=== PATIENT | female | born 1985 | race Caucasian/White ===

== ENCOUNTER 2018-07-30 14:00 | Outpatient (RCR) | payer OTHER, SELFPAY | END 2018-07-30 23:59 | LOC: NS 14:00 | PROVIDERS: Family Provider Family Medicine; PCP Family Medicine; Visit Provider Nurse Practitioner Family | DX: E66.9 Obesity, unspecified (principal); Z68.41 Body mass index [BMI] 40.0-44.9, adult; Z71.3 Dietary counseling and surveillance | CPT/HCPCS: 97803 ==

== ENCOUNTER 2018-08-13 08:07 | Outpatient (RCR) | payer OTHER, SELFPAY | END 2018-08-13 23:59 | LOC: NS 08:07 | PROVIDERS: Family Provider Family Medicine; PCP Family Medicine; Visit Provider Nurse Practitioner Family | DX: E66.9 Obesity, unspecified (principal); Z68.41 Body mass index [BMI] 40.0-44.9, adult; Z71.3 Dietary counseling and surveillance | CPT/HCPCS: 97803 ==

== ENCOUNTER 2022-03-27 14:30 | Outpatient (RCR) | payer OTHER, SELFPAY ==
--- NOTE | 2022-01-31 09:01 | HP.PTEVAL_ITS ---
Patient's Visit Information MICHELE ALLAN is a 36 year old F referred to Physical Therapy by Serenity Tony with a diagnosis of L knee pain. Date of Evaluation: 01/31/22 Physical Therapist: Gerber Michel, PT, ATC - Visit Plan Frequency: 2-3x /Week Duration: 4-6 Weeks Plan: L knee stretching and strengthening, REIL, core stab ex's, bike, and HEP - Subjective Pt reports she has had L knee pain for 9 months. Pt reports she was on a creeper at that time and felt a popping sensation upon standing. Pt reports she went to the orthopedic and received and MRI. Pt reports all that was found was a bakers cyst, so she was given an anti-inflammatory and felt great after that. However, pt reports she went on vacation 3 weeks ago and left her medications at home, and the pain returned. Pt reports she was given more anti-inflammatories which h ave taken away most of the pain again, and she was ordered another MRI which has been refused until pt has PT. Pt reports the pain is located in the popliteal region of her L knee. Pt also notes pain on the lower aspect of her lateral calf, and along the distal hamstring tendon. Pt reports tingling on the lasteral aspect of L LE that will radiate into her foot. Occasional sleep difficulty secondary to pain without pain meds. Pt reports increased pain with car rides, stair negotiation, and kneeling onto L LE. 1/10 pain at rest, 10/10 pain at worst (pt was on the floor and attempted to stand up at that time.) - Pain L knee pain Pain Intensity (Out of 10): 1 Pain Intensity Range: 9 - Objective Neuro: B LE sensation is WNL to light touch. B patellar reflex= 2/3. Palpation: Pt is very sore along the posterior aspect of L knee joint, specifically the lateral aspect. No obvious deformity noted at this time. Girth: R knee 42 cm, L knee 44 cm. ROM: R knee 0-135, L knee 0-7-110. MMT: R knee flex= 26, ext= 25 #F; L knee flex= 19, ext= 16 #F. Special test: No pos tests this date. Re peated movements of the L/S; RFIS Increased tingling in L foot; MATTHEW centralized sx's - Balance/Special Test Scores Lower Extremity Functional Score: 16 - Goals Goal 1:: Decrease L knee pain x 50% to aid with sleep Goal Time Frame: 4-6 Weeks Goal 2:: Increase L knee ROM x 15 degrees to aid with stair negotiation Goal Time Frame: 4-6 Weeks Goal 3:: Increase L knee strength x 5#F to aid with work requirements Goal Time Frame: 4-6 Weeks Goal 4:: I with HEP Goal Time Frame: 4-6 Weeks - Rehabilitation Potential Physical Therapy Diagnosis: Pt has L knee pain, weakness, and limited ROM secondary to internal knee derrangement Rehabilitation Potential: Good - Anticipated Interventions Patient/Client Instruction: Educate patient on: Condition, Plan of Care For the Purpose of:: To improve self management Therapeutic Exercise to Include: Strength training, Endurance training, Balance training, Gait and locomotor training, Dynamic Lumbar Stabilization For the Purpose of:: To decrease pain, To increase ROM, To improve muscle performance and motor function Cryotherapy (ice pack, ice massage): Yes For the Purpose of:: To decrease pain Thank you for the opportunity to evaluate your patient. For Medicare and Medicare HMO plans, please review the plan of care and approve it. It will need to be FAXED BACK to us at [phone] for Medicare purposes. For Medicare only, by signing this I certify the plan of care. Please let me know if there are questions or concerns regarding this plan of care. Physician Signature: Date:
--- NOTE | 2022-03-27 15:04 | HP.PTDCSUM ---
It has been my pleasure to treat MICHELE ALLAN referred by Serenity Tony, with the diagnosis of L knee pain for a total of 7 visit(s). Discharge Date: Please see the following information for a summary of their discharge status. Subjective: No pain this date L knee pain Pain Intensity (Out of 10): 0 % Improvement: 90 Objective/Function: L knee pain 0/10. L knee MMT: flex= 30, ext= 37#F. L knee ROM: 0-120 degrees. Pt is I with HEP. Rx goals achieved. Goal 1:: Decrease L knee pain x 50% to aid with sleep Goal Progress: Goal Met Goal 2:: Increase L knee ROM x 15 degrees to aid with stair negotiation Goal Progress: Goal Met Goal 3:: Increase L knee strength x 5#F to aid with work requirements Goal Progress: Goal Met Goal 4:: I with HEP Goal Progress: Goal Met Plan: Discharge to HEP If there are questions or concerns regarding this patient's physical therapy, please feel free to call me at [phone]. Thank you for the referral of this patient. Sincerely, Gerber Michel, PT, ATC Balance/Gait/Functional tests - Balance/Special Test Scores Lower Extremity Functional Score: 67
--- NOTE | 2022-03-27 15:07 | HP.PTREVAL ---
Serenity Tony, It has been my pleasure to treat MICHELE ALLAN over the last 7 visits for L knee pain. Please see the progress note below for an update on the physical therapy plan of care! Subjective: No pain this date Objective/Function: L knee pain 0/10. L knee MMT: flex= 30, ext= 37#F. L knee ROM: 0-120 degrees. Pt is I with HEP. Rx goals achieved. Plan Plan: Follow up or discharge in one month Balance/Gait/Functional tests - Balance/Special Test Scores Lower Extremity Functional Score: 67 Goals Goal 1:: Decrease L knee pain x 50% to aid with sleep Goal Time Frame: 4-6 Weeks Goal Progress: Goal Met Goal 2:: Increase L knee ROM x 15 degrees to aid with stair negotiation Goal Time Frame: 4-6 Weeks Goal Progress: Goal Met Goal 3:: Increase L knee strength x 5#F to aid with work requirements Goal Time Frame: 4-6 Weeks Goal Progress: Goal Met Goal 4:: I with HEP Goal Time Frame: 4-6 Weeks Goal Progress: Goal Met Anticipated Interventions Patient/Client Instruction: Educate patient on: Condition, Plan of Care For the Purpose of:: To improve self management Therapeutic Exercise to Include: Strength training, Endurance training, Balance training, Gait and locomotor training, Dynamic Lumbar Stabilization For the Purpose of:: To decrease pain, To increase ROM, To improve muscle performance and motor function Cryotherapy (ice pack, ice massage): Yes For the Purpose of:: To decrease pain Please do not hesitate to contact me at [phone] by phone or if you have questions or concerns regarding this new plan of care! Sincerely, Gerber Michel, PT, ATC
== END 2022-03-27 19:00 | disposition home or self-care (01) ==
LOC: PT 14:30
DX: M25.562 Pain in left knee (principal)
CPT/HCPCS: 97110; 97140; 97161; 97164

== ENCOUNTER → 2023-02-28 | Outpatient (CLI) | payer OTHER, SELFPAY ==
[2023-02-28 18:20] LABS: Basophil# 0.07 X10^3/uL; Basophil% 1.2 % (0-1); Eosinophil# 0.14 X10^3/uL; Eosinophils% 2.3 % (0-5); Hematocrit 38.3 % (37-47); Hemoglobin 13.1 g/dL (12.0-15.0); Lymphocyte % 38.5 % (19-41); Mean Corp Hgb Conc 34.2 g/dL (32-36); Mean Corpuscular Hgb 31.6 pg (27.0-32.0); Mean Corpuscular Volume 92.5 fL (81-99); Mean Platelet Vol. 10.7 fl (6.2-12.0); Monocyte# 0.51 X10^3/uL; Monocyte% 8.5 % (0-10); NRBC Flagged by Analyzer 0 % (0-5); Neutrophil # 2.95 X10^3/uL (2.7-7.7); Neutrophil % 49.3 % (47-70); Platelet Count 255 K/mm3 (150-450); RBC Distribution Width CV 11.8 % (11.6-14.6); RBC Distribution Width SD 40.1 fl (35.1-43.9); Red Blood Count 4.14 M/mm3 (4.2-5.4)
[2023-02-28 19:25] LABS: hCG Titer Quant., Serum < 1 mIU/mL (1-3)
[2023-02-28 19:31] LABS: Estradiol 30.8 pg/mL; Follicle Stimulating Hormone 11.1 mIU/mL; Luteinizing Hormone 6.2 mIU/mL; Prolactin 6.3 ng/mL; T4 Free Direct 1.05 ng/dL (0.76-1.46); Thyroid Stim Hormone (TSH) 1.83 uIU/mL (0.358-3.74)
== END | disposition home or self-care (01) ==
LOC: WOBLAB 16:41
PROVIDERS: Visit Provider Nurse Practitioner Women's Health
DX: N94.5 Secondary dysmenorrhea (principal)
CPT/HCPCS: 36415; 82670; 83001; 83002; 84146; 84439; 84443; 84702; 85025

== ENCOUNTER 2024-01-29 20:33 | Emergency (ER) | payer OTHER, SELFPAY ==
[2024-01-29 20:34] VITALS: BP 115/71; PULSE 107; RESP 15; TEMP 37.2; O2SAT 96; BMI 30.6
[2024-01-29 21:01] LABS: Bacteria 0 SEEN /hpf (None Seen); Mucous, Urine 0 SEEN /hpf (<or=2+); Red Blood Cells-Urine 0 SEEN /hpf (0-5); White Blood Cells 0 SEEN /hpf (0-5)
[2024-01-29 21:05] LABS: Color, Urine Yellow (Yellow); Glucose, Dipstick Normal (Normal); Ketone-Dipstick Negative (Negative); Leukocyte Esterase-Dipstick Negative /ul (Negative); Nitrite-Dipstick Negative (Negative); Occult Blood-Urine Negative /ul (Negative); Protein-Dipstick Negative (Negative); Urine Bilirubin Dipstick Negative (Negative); Urine Clarity Clear (Clear); Urine Urobilinogen Normal (Normal)
[2024-01-29 21:30] LABS: Absolute Lymphocyte Count 1.19 X10^3/uL (0.83-4.51); Absolute Neutrophil Count 7.4 X10^3/uL (2.0-7.7); Basophil# 0.04 X10^3/uL; Basophil% 0.4 % (0-1); Eosinophil# 0.02 X10^3/uL; Eosinophils% 0.2 % (0-5); Hematocrit 32.9 % (37-47); Hemoglobin 11.1 g/dL (12.0-15.0); Lymphocyte # 1.19 X10^3/ul (0.83-4.51); Lymphocyte % 12.1 % (19-41); Mean Corp Hgb Conc 33.7 g/dL (32-36); Mean Corpuscular Hgb 30.4 pg (27.0-32.0); Mean Corpuscular Volume 90.1 fL (81-99); Mean Platelet Vol. 10.7 fl (6.2-12.0); Monocyte# 1.18 X10^3/uL; NRBC Flagged by Analyzer 0 % (0-5); Neutrophil # 7.36 X10^3/uL (2.7-7.7); Neutrophil % 74.9 % (47-70); Platelet Count 161 K/mm3 (150-450); RBC Distribution Width CV 11.6 % (11.6-14.6); RBC Distribution Width SD 38.1 fl (35.1-43.9); Red Blood Count 3.65 M/mm3 (4.2-5.4); White Blood Count 9.8 K/mm3 (4.4-11.0)
[2024-01-29 21:31] LABS: Squamous Epithelial Cells - UA 0-5 SEEN /hpf (5-10)
[2024-01-29 21:38] VITALS: BP 117/67; PULSE 104; RESP 16; TEMP 36.8; O2SAT 99
[2024-01-29 21:42] LABS: Internal QC Validated? YES +Cl - CLEAR BKGD; Pregnancy, Serum, hCG Quali. NEGATIVE Negative
[2024-01-29 21:51] LABS: AST(SGOT) 21 U/L (15-37); Alanine Aminotransfer ALT/SGPT 28 U/L (13-56); Albumin, Serum 3.2 g/dL (3.2-5.0); Alkaline Phosphatase 45 U/L (45-117); Anion Gap 4 (5-15); BUN 6 mg/dL (7-18); Calcium,Total 8.4 mg/dL (8.5-10.1); Chloride 109 mmol/L (98-107); Creatinine, Serum 0.67 mg/dL (0.55-1.02); EST Glomerular Filtration Rate 104 mL/min (>60); Est Glom Filt Rate - Afr Amer 126 mL/min (>60); Estimated Creatinine Clearance 111.81 ml/min; Globulin 3.2 g/dL (2.2-4.2); Glucose 118 mg/dL (74-106); Potassium 3.7 mmol/L (3.5-5.1); Protein, Total 6.4 g/dL (6.4-8.2); Sodium Level 137 mmol/L (136-145)
--- NOTE | 2024-01-29 21:57 | CT_ITS ---
STUDY: CT ABDOMEN AND PELVIS WITHOUT CONTRAST REASON FOR EXAM: Female, 38 years old. R flank pain RADIATION DOSAGE (If Supplied By Facility): CTDIvol = ( 7.10 ) mGy, DLP = ( 381.61 ) mGycm TECHNIQUE: Transaxial images were obtained from the dome of the diaphragm to the symphysis pubis without oral contrast, and without intravenous contrast. Sagittal and coronal images were reconstructed. Individualized dose optimization techniques were used for this CT. COMPARISON: Abdominal ultrasound December 24, 2014 FINDINGS: Calcified granuloma left lower lobe. The visualized portions of the heart are within normal limits. Normal liver. Normal gallbladder and extrahepatic biliary system. Normal spleen. Normal pancreas. Normal bilateral adrenal glands. Moderate right hydronephrosis and perinephric stranding. No radiodense ureterolithiasis punctate nonobstructing nephrolith on the left. Normal visualized stomach. Air-fluid levels in the small bowel. Normal colon. The appendix is visualized and appears normal. Normal abdominal aorta. Normal inferior vena cava. Normal retroperitoneum. Normal urinary bladder. Uterus normal. Normal abdominal wall. Normal osseous structures. CT/Abdomen/Pelvis without Cont IMPRESSION: Possible right pyelonephritis. Ileus. Electronically Signed: Josesito Cullen MD at 22:50 EDT ,
--- NOTE | 2024-01-29 21:58 | ED.VIS.GI ---
HPI HPI - GI History of Present Illness Chief Complaint: Abd Pain Informant: patient Narrative Narrative: Pain in her right flank that is mostly in the low back and radiates around to the right mid abdomen, started gradually but fairly quickly became worse earlier this afternoon, may be 6-8 hours prior to evaluation. Pain is not colicky. Associated with nausea and 1 bout of emesis. Has some urinary urgency and feels like trouble emptying bladder but no dysuria or hematuria or dark discolored urine. Constipated recently no diarrhea or bright red blood per rectum. No fevers or chills. Never had this pain before. History of no other abdominal surgeries. Did not occur after a meal. Does not hurt worse to move, having trouble finding a comfortable position since she keeps moving around. PFSH PFSH Medical History no medical history Home Medications albuterol sulfate 90 mcg/actuation aerosol inhaler (ProAir HFA) 2 puff inhalation Q4H PRN PRN Shortness Of Breath 10/08/13 [History Last Taken 10/08/13 2] ketorolac 10 mg tablet 10 mg PO Q6H FOR PAIN ##20 12/24/14 [Rx Last Taken Unknown] ondansetron 8 mg disintegrating tablet (Zofran ODT) 8 mg PO Q8H PRN PRN Nausea ##14 12/24/14 [Rx Last Taken Unknown] paroxetine HCl 20 mg tablet 20 mg PO DAILY 12/24/14 [History Last Taken Unknown] ondansetron 8 mg disintegrating tablet 8 mg PO Q8H PRN nausea and vomiting #12 tabs 01/30/24 [Rx Last Taken Unknown] oxycodone-acetaminophen 5 mg-325 mg tablet 1 tab PO Q6H PRN PRN Pain 3 days #12 TABLETS 01/30/24 [Rx Last Taken Unknown] Allergy/AdvReac Type Severity Reaction Status Date / Time No Known Allergies Allergy Verified 01/29/24 20:39 Surgical History no surgical history Social History Smoking Status: Never smoker ROS ROS ED Constitutional Constitutional ED: Denies chills or fever(s) Eyes Eyes: Denies change in vision or diplopia ENT ENT ED: Denies rhinorrhea or sore throat Cardiovascular Cardiovascular: Denies chest pain or palpitations Respiratory/Chest Respiratory/Chest: Denies cough or dyspnea Gastrointestinal Gastrointestinal: Reports abdominal pain, nausea and vomiting; Denies diarrhea Genitourinary Genitourinary ED: Reports as per HPI, flank pain and urinary urgency; Denies dysuria or hematuria Musculoskeletal Musculoskeletal: Reports back pain; Denies neck pain Integumentary Denies abscess or rash Neurologic Neurologic: Denies headache(s), paresthesias or weakness Psychiatric Psychiatric: Denies anxiety or suicidal thoughts EXAM Physical Exam Const Vital Signs: 01/29/24 20:34 01/29/24 22:34 01/29/24 21:38 Temperature 98.9 F 98.2 F Temperature Source Temporal Temporal Pulse Rate 107 H 105 H 104 H Respiratory Rate 15 16 16 Blood Pressure 115/71 118/78 117/67 Blood Pressure Mean 85 91 83 Pulse Ox 96 99 99 Oxygen Delivery Method Room Air Room Air 01/29/24 23:00 Temperature 97.8 F Temperature Source Temporal Pulse Rate 100 Respiratory Rate 16 Blood Pressure 115/67 Blood Pressure Mean 83 Pulse Ox 99 Oxygen Delivery Method Room Air Positive well nourished and well developed General Appearance ED: well developed and NAD HEENT Reports moist mucous membranes normocephalic and atraumatic Eyes PERRL and EOMs intact bilaterally Neck full ROM and supple Resp normal respiratory effort and clear to auscultation bilaterally Cardio regular rate, regular rhythm and no murmurs GI non-distended GI Narrative: Tender right mid abdomen and McBurney's point but not distal right lower quadrant and not right upper quadrant. Negative Prery. No guarding or rebound. Auscultation: normoactive bowel sounds Palpation: soft Back/Spine General Back: CVA tenderness right and other FROM Extremity normal to inspection General Extremety ED: Negative for edema, pulses abnormal or tenderness General Extremity: Negative for edema or pulses abnormal Neuro oriented x3, CN's II-XII intact bilaterally and no sensory deficits noted Sensorium / Orientation: awake and alert Motor Exam: strength 5/5 throughout Skin no rashes or lesions noted and no wounds MDM MDM MDM Narrative Medical decision making narrative: Patient was given Toradol and morphine as well as Zofran for symptoms, she felt much better on reevaluation. Labs are normal, urinalysis shows no blood and no sign of any infection. Obtained a CT scan, to see if she was having a kidney stone causing this pain, I reviewed images of the CT as well as result which I agree with, it shows hydronephrosis with perinephric stranding on the right, but no urolithiasis on the right to explain the hydronephrosis. There is no hydroureter. There are 2 punctate stones within the left kidney that are not causing any obstruction in the kidney and ureter on the left are otherwise normal-appearing. Given these results I contemplated the possibility of a stone that she recently passed, I looked at the urine specimen cup that she provided us urinated and there is no stone in there, not that this necessarily rules it out but I discussed with Dr. Lanier on for urology. At this time she states that renal pelvis obstruction is in the differential diagnosis and given her normal labs and lack of infection we can discharge her home with prescriptions if needed and have her follow-up in the office for reevaluation. Lab Data Attestation: I reviewed the patient's lab results. Labs: Laboratory Results - last 24 hr 01/29/24 01/29/24 20:55 21:15 WBC 9.8 RBC 3.65 L Hgb 11.1 L Hct 32.9 L MCV 90.1 MCH 30.4 MCHC 33.7 RDW Std Deviation 38.1 RDW Coeff of Wade 11.6 Plt Count 161 MPV 10.7 Immature Gran % (Auto) 0.400 Neut % (Auto) 74.9 H Lymph % (Auto) 12.1 L Barton % (Auto) 12.0 H Eos % (Auto) 0.2 Baso % (Auto) 0.4 Absolute Neuts (auto) 7.4 Absolute Lymphs (auto) 1.19 Nucleated RBC % 0 Sodium 137 Potassium 3.7 Chloride 109 H Carbon Dioxide 24.0 Anion Gap 4 L BUN 6 L Creatinine 0.67 Estim Creat Clear Calc 111.81 Est GFR (MDRD) Af Amer 126 Est GFR (MDRD) Non-Af 104 BUN/Creatinine Ratio 9.0 L Glucose 118 H Calcium 8.4 L Total Bilirubin 0.50 AST 21 ALT 28 Alkaline Phosphatase 45 Total Protein 6.4 Albumin 3.2 Globulin 3.2 Albumin/Globulin Ratio 1.0 Serum , Qual NEGATIVE Urine Color Yellow Urine Clarity Clear Urine pH 8.0 Ur Specific [place] 1.010 Urine Protein Negative Urine Glucose (UA) Normal Urine Ketones Negative Urine Occult Blood Negative Urine Nitrite Negative Urine Bilirubin Negative Urine Urobilinogen Normal Ur Leukocyte Esterase Negative Urine RBC 0 SEEN Urine WBC 0 SEEN Ur Squamous Epith Cells 0-5 SEEN Urine Bacteria 0 SEEN Urine Mucus 0 SEEN Radiography Diagnostic Testing: Clinical Impression(s) from Imaging Studies Abdomen/Pelvis CT 01/29/24 21:57 IMPRESSION: Possible right pyelonephritis. Ileus. Electronically Signed: Josesito Cullen MD at 22:50 EDT Reading Location ID and State: [address] [place] [address] Tel , Service support , Discharge Plan Triage Chief Complaint: Abd Pain ED Provider: Johny Ferrell Dx/Rx/DC Orders Clinical Impression: Hydronephrosis of right kidney Instructions: Understanding Hydronephrosis Prescriptions: New ondansetron 8 mg tablet,disintegrating 8 mg PO Q8H PRN (Reason: nausea and vomiting) Qty: 12 0RF oxycodone-acetaminophen [oxycodone-acetaminophen] 5-325 mg tablet 1 tab PO Q6H PRN PRN (Reason: Pain) 3 Days Qty: 12 0RF No Action albuterol sulfate [ProAir HFA] 1 PUFF inhaler 2 puff inhalation Q4H PRN PRN (Reason: Shortness Of Breath) Patient Comments: PT STATES THEY GAVE HER THIS WHEN THEY THOUGHT SHE HAD PNEUMONIA paroxetine HCl 20 MG tablet 20 mg PO DAILY ketorolac 10 MG tablet 10 mg PO Q6H Qty: 20 0RF ondansetron [Zofran ODT] 8 MG tablet,disintegrating 8 mg PO Q8H PRN PRN (Reason: Nausea) Qty: 14 0RF Rx Instructions: Primary Care Provider: Jessika Moser NP Referrals: Natalie Lanier MD [Med Staff - Active Staff] - As soon as possible (call for appt) Jessika Moser NP, [facility] [Primary Care Provider] - Disposition Disposition: Home, Self Care
[2024-01-29] MEDS: Ondansetron 4 MG/2 ML Vial IV (22:12)
[2024-01-29] MEDS: Ketorolac 30 MG/ML Syringe IV (22:13)
[2024-01-29] MEDS: Morphine 4 MG/ML Syringe IV (22:14)
[2024-01-29 22:34] VITALS: BP 118/78; PULSE 105; RESP 16; O2SAT 99
[2024-01-29 23:00] VITALS: BP 115/67; PULSE 100; RESP 16; TEMP 36.6; O2SAT 99
[2024-01-30] MEDS: Oxycodone/Apap 5/325 Tablet PO (00:32)
[2024-01-30 00:40] VITALS: BP 116/67; PULSE 97; RESP 16; TEMP 36.7; O2SAT 99
== END 2024-01-30 00:30 | disposition home or self-care (01) ==
PROVIDERS: Emergency Provider Emergency Medicine; PCP Nurse Practitioner Family; Visit Provider Emergency Medicine
DX: N13.2 Hydronephrosis with renal and ureteral calculous obstruction (principal); Z79.51 Long term (current) use of inhaled steroids; Z79.899 Other long term (current) drug therapy
CPT/HCPCS: 74176; 80053; 81001; 84703; 85025; 96374; 96375; 99283; A4216; J2405

== ENCOUNTER → 2024-02-17 | Outpatient (CLI) | payer OTHER, SELFPAY ==
[2024-02-17 17:51] LABS: Hematocrit 36.5 % (37-47); Mean Corp Hgb Conc 32.9 g/dL (32-36); Mean Corpuscular Hgb 30.1 pg (27.0-32.0); Mean Corpuscular Volume 91.5 fL (81-99); Mean Platelet Vol. 10.4 fl (6.2-12.0); Platelet Count 265 K/mm3 (150-450); RBC Distribution Width CV 11.9 % (11.6-14.6); RBC Distribution Width SD 39.8 fl (35.1-43.9); Red Blood Count 3.99 M/mm3 (4.2-5.4); White Blood Count 4.6 K/mm3 (4.4-11.0)
[2024-02-17 18:37] LABS: Anion Gap 4 (5-15); BUN 10 mg/dL (7-18); BUN/Creat Ratio 14.8 RATIO (10-20); Calcium,Total 9.1 mg/dL (8.5-10.1); Chloride 108 mmol/L (98-107); Creatinine, Serum 0.67 mg/dL (0.55-1.02); EST Glomerular Filtration Rate 103 mL/min (>60); Est Glom Filt Rate - Afr Amer 125 mL/min (>60); Glucose 81 mg/dL (74-106); Sodium Level 137 mmol/L (136-145)
== END | disposition home or self-care (01) ==
PROVIDERS: PCP Nurse Practitioner Family; Referring Provider Urology; Visit Provider Urology
DX: R55 Syncope and collapse (principal)
CPT/HCPCS: 36415; 80048; 85027